=== PATIENT | female | born 1990 | race Caucasian/White ===

== ENCOUNTER 2017-01-18 19:35 | Emergency (ER) | payer MEDICAID ==
[2017-01-18 21:19] LABS: BASOPHIL % 0.2 % (0-2); PLATELET COUNT 303 x10^3mcL (130-400); RED CELL DISTRIBUTION WIDTH 13.1 % (11.5-14.5)
[2017-01-18 21:26] LABS: microscopic required? NO
[2017-01-18 21:46] LABS: UA SPECIFIC GRAVITY 1.025 (1.005-1.035); urine erythrocyte NEGATIVE (NEGATIVE)
[2017-01-18 23:34] VITALS: BP 102/45
== END 2017-01-18 23:34 | disposition home or self-care (01) ==
LOC: ED 19:35
PROVIDERS: Emergency Medicine Emergency Medical Services
DX: L30.4 Erythema intertrigo (principal)
CPT/HCPCS: 36415

== ENCOUNTER 2017-07-05 23:35 | Emergency (ER) | payer MEDICAID ==
[~2017-07-05] VITALS: Ht 160 cm; Wt 95.7 kg
[2017-07-05 23:39] VITALS: Ht 160 cm; Wt 95.7 kg
[2017-07-06 01:46] VITALS: BP 111/61
== END 2017-07-06 01:46 | disposition home or self-care (01) ==
LOC: ED 23:35
DX: J02.0 Streptococcal pharyngitis (principal)
CPT/HCPCS: 86308; J0561

== ENCOUNTER 2019-02-17 17:52 | Emergency (ER) | payer SELFPAY ==
[~2019-02-17] VITALS: Ht 167.6 cm; Wt 102.5 kg
[2019-02-17 17:57] VITALS: Ht 167.6 cm; Wt 102.5 kg
[2019-02-17 19:57] VITALS: BP 121/80
== END 2019-02-17 19:57 | disposition home or self-care (01) ==
LOC: ED 17:52
DX: N39.0 Urinary tract infection, site not specified (principal); H66.42 Suppurative otitis media, unspecified, left ear; Z98.890 Other specified postprocedural states